=== PATIENT | female | born 1940 | race Caucasian/White ===

== ENCOUNTER 2022-02-24 23:38 | Inpatient (IN) | payer BC, OTHER ==
[~2022-02-24] VITALS: Ht 160 cm; Wt 65.8 kg
--- NOTE | 2022-02-24 23:50 | NUR ---
Patient came in BIB RA [facility] from [facility] for abnormal labs hgb 6.8. Pt had pelvic fracture x 6 months ago.
[2022-02-25] VITALS (11 sets, daily range): BP systolic 138–161; BP diastolic 42–58
--- NOTE | 2022-02-25 00:15 | NUR ---
Seen and examined by Dr. Pinon for MSE.
[2022-02-25] MEDS ORDERED: ACETAMINOPHEN 325 MG TABLET PO ONE (00:30)
[2022-02-25] MEDS ORDERED: MORPHINE SULFATE 2 MG/1 ML DISP.SYRIN IV ONE (00:30)
[2022-02-25] MEDS ORDERED: ACETAMINOPHEN 325 MG TABLET ONE (00:47)
[2022-02-25] MEDS ORDERED: MORPHINE SULFATE 2 MG/1 ML DISP.SYRIN ONE (00:48)
[2022-02-25 01:16] LABS: HEMATOCRIT 23.4 % (31.2-41.9); MEAN CORPUSCULAR VOLUME 85.2 fL (75.5-95.3); PLATELET COUNT (AUTO) 216 K/uL (179-408)
[2022-02-25 01:45] LABS: ALANINE AMINOTRANSFERASE 22 U/L (14-59); ALKALINE PHOSPHATASE 195 U/L (50-136); ASPARTATE AMINOTRANSFERASE 25 U/L (15-37); BILIRUBIN,DIRECT 0.2 mg/dL (0.0-0.2); BILIRUBIN,TOTAL 0.6 mg/dL (0.2-1.0); CARBON DIOXIDE 28 mmol/L (21-32); CHLORIDE 92 mmol/L (98-107); CREATININE 3.5 mg/dL (0.6-1.3); GLUCOSE 113 mg/dL (74-106); POTASSIUM 4.2 mmol/L (3.5-5.1); TOTAL PROTEIN, SERUM 6.6 g/dL (6.4-8.2); UREA NITROGEN, BLOOD 74 mg/dL (7-18)
--- NOTE | 2022-02-25 03:51 | NUR ---
Called [facility] to page Linsey Torres NP.
--- NOTE | 2022-02-25 04:00 | NUR ---
Called [facility]/Tele for available room.
--- NOTE | 2022-02-25 04:30 | NUR ---
Spoke with LUCY Hernandez regarding patient's room. Patient will be placed to Room 318.
[2022-02-25] MEDS ORDERED: VITA1TAB20 PO (04:33)
[2022-02-25] MEDS ORDERED: ATOR10TA PO (04:33)
[2022-02-25] MEDS ORDERED: ACET-73 PO (04:33)
[2022-02-25] MEDS ORDERED: AMIO200T5 PO (04:33)
[2022-02-25] MEDS ORDERED: CARV20CP PO (04:33)
[2022-02-25] MEDS ORDERED: LIDO30AD10 TP (04:33)
[2022-02-25] MEDS ORDERED: UBID100C45 PO (04:33)
[2022-02-25] MEDS ORDERED: AMIN30LI2 PO (04:33)
[2022-02-25] MEDS ORDERED: DOXA2TAB2 PO (04:33)
[2022-02-25] MEDS ORDERED: ALLO100T PO (04:33)
[2022-02-25] MEDS ORDERED: INSU100C (04:33)
[2022-02-25] MEDS ORDERED: SITA50TA PO (04:33)
[2022-02-25] MEDS ORDERED: NA P133E RC (04:33)
[2022-02-25] MEDS ORDERED: MAGN400O6 PO (04:33)
[2022-02-25] MEDS ORDERED: APIX2.5T PO (04:33)
[2022-02-25] MEDS ORDERED: CAND32TA20 PO (04:33)
[2022-02-25] MEDS ORDERED: ACET-2154 PO (04:33)
[2022-02-25] MEDS ORDERED: LEVO175T7 PO (04:33)
[2022-02-25] MEDS ORDERED: FERR325T28 PO (04:33)
[2022-02-25] MEDS ORDERED: TORS20TA3 PO (04:33)
[2022-02-25] MEDS ORDERED: CHOL2000 PO (04:33)
[2022-02-25] MEDS ORDERED: BISA10SU61 RC (04:33)
[2022-02-25] MEDS ORDERED: GLIP5TAB13 PO (04:33)
[2022-02-25] MEDS ORDERED: REMEDY ESSENTIAL ZINC PASTE 113 GM TP PRN (04:45)
[2022-02-25] MEDS ORDERED: ACETAMINOPHEN 325 MG TABLET-SA PATIENTS-PAIN ONLY PO PRN (04:45)
[2022-02-25] MEDS ORDERED: DEXTROSE 50% 50 ML DISP.SYRIN IV PRN (04:45)
[2022-02-25] MEDS ORDERED: INSULIN REGULAR, HUMAN 300 UNITS/3 ML VIAL SQ PRN (04:45)
[2022-02-25] MEDS ORDERED: ONDANSETRON 4 MG/2 ML VIAL IV PRN (04:45)
[2022-02-25] MEDS ORDERED: ZOLPIDEM 5 MG TABLET PO PRN (04:45)
[2022-02-25] MEDS ORDERED: IV NS 1000 ML 1,000 ML IV PRN (04:45)
[2022-02-25] MEDS ORDERED: MAGNESIUM HYDROXIDE 30 ML LIQUID UDC PO PRN ×2 (04:45)
[2022-02-25] MEDS ORDERED: FLEET ENEMA 133 ML BOTTLE RC PRN (04:45)
[2022-02-25] MEDS ORDERED: INSULIN REGULAR, HUMAN 300 UNIT/3 ML VIAL SQ PRN (04:45)
--- NOTE | 2022-02-25 04:45 | NUR ---
Still for OB stool, will endorsed to LUCY Hernandez.
--- NOTE | 2022-02-25 05:10 | NUR ---
Report given to LUCY Hernandez.
--- NOTE | 2022-02-25 05:15 | NUR ---
Transported to room 318 via gurney, without any incident, accompanied by 1 staff member. Belongings list checked.
[2022-02-25] MEDS ORDERED: ACETAMINOPHEN ES 500 MG TABLET PO PRN (05:45)
[2022-02-25] MEDS: LEVOTHYROXINE SODIUM 175 MCG TABLET PO SCH (06:04)
[2022-02-25] MEDS: BLOOD SUGAR DIAGNOSTIC 1 EACH STRIP VI SCH ×4 (06:34→21:22)
--- NOTE | 2022-02-25 06:41 | NUR ---
Admitted patient to tele unit from [facility] via [facility] accompanied by [facility] nurse.Dx of anemia under the care of jose Stiles .Patient AALOx4.Denies SOB. On RA. NSr on Tele.IV patent and intact.Started IVF running at 75 ml /hr.Incontinent. Pericare provided and wound care. Safety measures in place. Notified Linsey patient's H/H no blood transfusion needed at this time. Call light within reach. Will endorse to incoming shift.
[2022-02-25] MEDS ORDERED: CANDESARTAN CILEXETIL 16 MG PO SCH (09:00)
[2022-02-25] MEDS ORDERED: Medication Not On Formulary EA (Ubidecarenone (Co Q-10) 100 MG) PO SCH (09:00)
[2022-02-25] MEDS ORDERED: BISACODYL 10 MG SUPP.RECT RC PRN (09:00)
[2022-02-25] MEDS ORDERED: Medication Not On Formulary EA (Sitagliptin Phosphate (Januvia) 25 MG) PO SCH (09:00)
[2022-02-25] MEDS ORDERED: LIDOCAINE 5% PATCH TD SCH (09:00)
[2022-02-25] MEDS ORDERED: TORSEMIDE PO SCH (09:00)
[2022-02-25] MEDS ORDERED: Medication Not On Formulary EA (Carvedilol Phosphate (Coreg Cr) 1 CAP) PO SCH (09:00)
[2022-02-25] MEDS ORDERED: hydrALAZINE HCL 25 MG TABLET PO PRN (09:00)
--- NOTE | 2022-02-25 09:00 | NUR ---
HBG [address] Dmitriy MD with new orders to transfuse blood. Patient is alert and oriented x4, able to make needs known. Noted with left eye drooping. On RA, no SOB or congestions. Telemetry is NSR. noted with left hip pain from FX. patient has open skin area to bilateral buttocks and sacral redness. Patient encouraged to be on her sides but refuses. All needs attended by staff.
[2022-02-25 09:17] LABS: MEAN CORPUSCULAR HEMOGLOBIN 28.1 uug (24.7-32.8); MEAN CORPUSCULAR VOLUME 85.5 fL (75.5-95.3); PLATELET COUNT (AUTO) 182 K/uL (179-408)
[2022-02-25 09:21] LABS: CARBON DIOXIDE 27 mmol/L (21-32); CHLORIDE 93 mmol/L (98-107); CREATININE 3.5 mg/dL (0.6-1.3); GLUCOSE 137 mg/dL (74-106); POTASSIUM 4.3 mmol/L (3.5-5.1); UREA NITROGEN, BLOOD 72 mg/dL (7-18)
[2022-02-25] MEDS: CARVEDILOL 6.25 MG TABLET PO SCH ×2 (09:24→17:35)
[2022-02-25] MEDS: AMIODARONE HCL 200 MG TABLET PO SCH (09:24)
[2022-02-25] MEDS: LINAGLIPTIN 5 MG TABLET PO SCH (09:24)
[2022-02-25] MEDS: glipiZIDE 5 MG TABLET PO SCH ×2 (09:24→17:35)
[2022-02-25] MEDS: LOSARTAN POTASSIUM 50 MG TABLET PO SCH (09:24)
[2022-02-25] MEDS: CHOLECALCIFEROL 1,000 UNIT TABLET PO SCH (09:24)
[2022-02-25] MEDS: FERROUS SULFATE 325 MG TABEC PO SCH (09:25)
[2022-02-25] MEDS: PANTOPRAZOLE SODIUM 40 MG VIAL IV SCH (09:25)
[2022-02-25] MEDS: ALLOPURINOL 100 MG TABLET PO SCH (09:25)
[2022-02-25] MEDS: VITAMIN B COMPLEX 1 TABLET PO SCH (09:25)
[2022-02-25] MEDS: PROTEIN SUPPLEMENT (PROSTAT) 30 ML LIQUID PO SCH ×3 (09:26→17:37)
[2022-02-25 09:34] LABS: THYROID STIMULATING HORMONE 1.004 mIU/mL (0.358-3.740)
[2022-02-25 09:38] LABS: ALANINE AMINOTRANSFERASE 17 U/L (14-59); ALKALINE PHOSPHATASE 171 U/L (50-136); ASPARTATE AMINOTRANSFERASE 19 U/L (15-37); BILIRUBIN,TOTAL 0.6 mg/dL (0.2-1.0); HEMATOCRIT 20.6 % (31.2-41.9); MAGNESIUM 1.9 mg/dL (1.8-2.4); PHOSPHOROUS 5.3 mg/dL (2.5-4.9); TOTAL PROTEIN, SERUM 5.9 g/dL (6.4-8.2)
[2022-02-25 09:40] LABS: IRON, SERUM 12 ug/dL (50-175)
[2022-02-25 09:57] LABS: CHOLESTEROL 92 mg/dL (<200); HDL CHOLESTEROL 42 mg/dL (40-60); TRIGLYCERIDES 48 MG/DL (30-150)
[2022-02-25] MEDS: LIDOCAINE 5% PATCH TD SCH (14:22)
--- NOTE | 2022-02-25 15:40 | NUR ---
Patient started on blood transfusion, no adverse reactions noted at his time. Denies any discomfort, no sob or cough.
[2022-02-25] MEDS: DOXAZOSIN 2 MG TABLET PO SCH (17:35)
--- NOTE | 2022-02-25 18:25 | NUR ---
Patient completed blood transfusion, no0 adverse reactions noted. Patient is stable and in no acute distress.
[2022-02-25 20:34] LABS: BAND % (MANUAL) 2 % (0-10); LYMPHOCYTES % (MANUAL) 8 % (20-40); MONOCYTES % (MANUAL) 8 % (2-10); NEUTROPHILS % (MANUAL) 81 % (42-75)
[2022-02-25] MEDS ORDERED: ATORVASTATIN 10 MG TABLET PO SCH (21:00)
--- NOTE | 2022-02-25 21:45 | NUR ---
Patient in bed alert and able to make needs known.Denies pain or discomfort at this time.On Ra.No s/s of distress noted.NSR on tele.BS 78. Snack provided.Iv patent and intact. Safety measures in place. Call light with in reach.Will continue to monitor.
[2022-02-26 00:12] VITALS: BP 151/47
[2022-02-26 05:23] LABS: *BILIRUBIN,URIN NEGATIVE (NEGATIVE); *BLOOD, URINE NEGATIVE (NEGATIVE); *CLARITY,URINE CLOUDY (CLEAR); *COLOR,URINE YELLOW (YELLOW); *KETONES,URINE NEGATIVE (NEGATIVE); *UROBILINOGEN,URINE 0.2 E.U./dl (NORMAL); LEUKOCYTE ESTERASE ,URINE 1+ (NEGATIVE); NITRITE, URINE NEGATIVE (NEGATIVE); PH,URINE 6.5 (5.0-8.0); UGLUCOSE NEGATIVE (NEGATIVE)
[2022-02-26 05:32] LABS: RBC,URINE 0-3 /HPF (0-3)
[2022-02-26 05:33] LABS: BACTERIA,URINE MODERATE /HPF (NONE SEEN); SQUAMOUS EPITHELIAL CELL,UR FEW /HPF (NONE SEEN)
[2022-02-26 05:42] VITALS: BP 137/50
[2022-02-26] MEDS: LEVOTHYROXINE SODIUM 175 MCG TABLET PO SCH (06:04)
--- NOTE | 2022-02-26 06:27 | NUR ---
Patient alert and verbally responsive in no acute distress noted. Incontinent.Pericare rendered. UA collected and sent to lab. Wound care provided.Repositioned patient gently. BS 57 this morning.Snacks provided. Kept HOB elevated. Aspiration precaution observed at all times.Will endorsed to incoming shift..
[2022-02-26] MEDS: BLOOD SUGAR DIAGNOSTIC 1 EACH STRIP VI SCH (06:37)
--- NOTE | 2022-02-26 06:43 | NUR ---
Rechecked Blood glucose 98.
[2022-02-26 07:22] LABS: HEMATOCRIT 23.9 % (31.2-41.9); MEAN CORPUSCULAR HEMOGLOBIN 27.7 uug (24.7-32.8); MEAN CORPUSCULAR VOLUME 83.6 fL (75.5-95.3); PLATELET COUNT (AUTO) 187 K/uL (179-408)
[2022-02-26 07:40] LABS: CARBON DIOXIDE 28 mmol/L (21-32); CHLORIDE 94 mmol/L (98-107); CREATININE 3.6 mg/dL (0.6-1.3); GLUCOSE 86 mg/dL (74-106); PHOSPHOROUS 5.1 mg/dL (2.5-4.9); POTASSIUM 4.3 mmol/L (3.5-5.1); UREA NITROGEN, BLOOD 75 mg/dL (7-18)
--- NOTE | 2022-02-26 08:54 | NUR ---
Dr. Izaguirre made aware of pattern of low blood sugar before meals and at night time. with orders to DC glipizide.
[2022-02-26] MEDS: PROTEIN SUPPLEMENT (PROSTAT) 30 ML LIQUID PO SCH ×3 (09:00→17:00)
[2022-02-26] MEDS: LINAGLIPTIN 5 MG TABLET PO SCH ×2 (09:00→09:17)
[2022-02-26] MEDS: LIDOCAINE 5% PATCH TD SCH (09:13)
[2022-02-26] MEDS: VITAMIN B COMPLEX 1 TABLET PO SCH (09:15)
[2022-02-26] MEDS: PANTOPRAZOLE SODIUM 40 MG VIAL IV SCH (09:15)
[2022-02-26] MEDS: AMIODARONE HCL 200 MG TABLET PO SCH (09:16)
[2022-02-26] MEDS: CHOLECALCIFEROL 1,000 UNIT TABLET PO SCH (09:17)
[2022-02-26] MEDS: ALLOPURINOL 100 MG TABLET PO SCH (09:17)
[2022-02-26] MEDS: FERROUS SULFATE 325 MG TABEC PO SCH (09:17)
[2022-02-26] MEDS: LOSARTAN POTASSIUM 50 MG TABLET PO SCH (09:21)
[2022-02-26] MEDS: CARVEDILOL 6.25 MG TABLET PO SCH ×2 (09:22→17:26)
[2022-02-26] MEDS: CEFTRIAXONE 1 G in IV DEXTROSE 5% 50 ML IV SCH (10:53)
[2022-02-26 11:44] VITALS: BP 138/43
[2022-02-26] MEDS: ACETAMINOPHEN 325 MG TABLET PO PRN (15:27)
--- NOTE | 2022-02-26 16:09 | NUR ---
Patient is AAO x4, in no acute distress. C/O severe pain to left hip during ADL's, mild pain when at rest. Tylenol 650mg provided. First step mattress provided and in place to assist in healing of pressure sore to bilateral buttocks and sacrum. Scant serosanguineous drainage noted. No SOB or c/o chest pain, on RA. all needs attended by staff.
[2022-02-26 17:09] VITALS: BP 119/59
[2022-02-26] MEDS: DOXAZOSIN 2 MG TABLET PO SCH (17:26)
[2022-02-26 20:00] VITALS: BP 155/60
[2022-02-27 05:00] VITALS: BP 145/72
[2022-02-27] MEDS: LEVOTHYROXINE SODIUM 175 MCG TABLET PO SCH (06:11)
[2022-02-27 06:23] LABS: HEMATOCRIT 24.2 % (31.2-41.9); MEAN CORPUSCULAR HEMOGLOBIN 27.7 uug (24.7-32.8); MEAN CORPUSCULAR VOLUME 84.7 fL (75.5-95.3); PLATELET COUNT (AUTO) 184 K/uL (179-408)
[2022-02-27 06:45] LABS: CARBON DIOXIDE 28 mmol/L (21-32); CHLORIDE 95 mmol/L (98-107); CREATININE 3.7 mg/dL (0.6-1.3); GLUCOSE 98 mg/dL (74-106); MAGNESIUM 2.1 mg/dL (1.8-2.4); PHOSPHOROUS 4.9 mg/dL (2.5-4.9); POTASSIUM 4.3 mmol/L (3.5-5.1)
[2022-02-27 06:50] LABS: UREA NITROGEN, BLOOD 85 mg/dL (7-18)
[2022-02-27 06:56] LABS: THYROID STIMULATING HORMONE 1.008 mIU/mL (0.358-3.740)
[2022-02-27] MEDS ORDERED: PANTOPRAZOLE SODIUM 40 MG TABLET.DR PO SCH (07:00)
[2022-02-27 07:33] LABS: URIC ACID 5.6 mg/dL (2.6-6.0)
[2022-02-27] MEDS: CARVEDILOL 6.25 MG TABLET PO SCH ×2 (09:24→17:34)
[2022-02-27] MEDS: AMIODARONE HCL 200 MG TABLET PO SCH (09:24)
[2022-02-27] MEDS: FERROUS SULFATE 325 MG TABEC PO SCH (09:24)
[2022-02-27] MEDS: LINAGLIPTIN 5 MG TABLET PO SCH (09:24)
[2022-02-27] MEDS: CHOLECALCIFEROL 1,000 UNIT TABLET PO SCH (09:25)
[2022-02-27] MEDS: ALLOPURINOL 100 MG TABLET PO SCH (09:25)
[2022-02-27] MEDS: LOSARTAN POTASSIUM 50 MG TABLET PO SCH (09:25)
[2022-02-27] MEDS: LIDOCAINE 5% PATCH TD SCH (09:28)
[2022-02-27] MEDS: CEFTRIAXONE 1 G in IV DEXTROSE 5% 50 ML IV SCH (09:29)
[2022-02-27] MEDS: VITAMIN B COMPLEX 1 TABLET PO SCH (09:36)
[2022-02-27] MEDS: PROTEIN SUPPLEMENT (PROSTAT) 30 ML LIQUID PO SCH ×3 (09:37→16:54)
--- NOTE | 2022-02-27 10:44 | NUR ---
Alert and oriented x4, denies sob or pain. Purewick attached. no hematuria or dysuria noted. Iv intact and patent. Needs attended. Kept comfortable.
[2022-02-27 11:34] VITALS: BP 161/49
--- NOTE | 2022-02-27 13:57 | NUR ---
Seen and examined by Dr. Verduzco from surgery, no new order received at this time.
--- NOTE | 2022-02-27 15:37 | NUR ---
Patient said she spoke with Dr. Wick yesterday that she wants to resume accuchecks. Spoke to Dr. Wick, ok to resume accuchecks, sliding scale and Atorvastatin noted. Patient made aware.
[2022-02-27] MEDS ORDERED: INSULIN REGULAR, HUMAN 300 UNIT/3 ML VIAL SQ PRN (15:45)
[2022-02-27] MEDS ORDERED: INSULIN REGULAR, HUMAN 300 UNITS/3 ML VIAL SQ PRN (15:45)
[2022-02-27] MEDS ORDERED: DEXTROSE 50% 50 ML DISP.SYRIN IV PRN (15:45)
[2022-02-27 16:00] VITALS: BP 159/50
[2022-02-27] MEDS ORDERED: BLOOD SUGAR DIAGNOSTIC 1 EACH STRIP VI SCH (16:30)
[2022-02-27] MEDS ORDERED: AMLODIPINE 5 MG TABLET PO SCH (16:45)
[2022-02-27] MEDS: ACETAMINOPHEN 325 MG TABLET PO PRN (17:03)
[2022-02-27] MEDS ORDERED: LEVO250S3 PO (17:17)
[2022-02-27] MEDS ORDERED: EPOE1VIA12 IJ (17:17)
[2022-02-27] MEDS ORDERED: AMLO-212 PO (17:21)
[2022-02-27] MEDS: DOXAZOSIN 2 MG TABLET PO SCH (17:33)
--- NOTE | 2022-02-27 18:48 | NUR ---
Patient for discharge agreeable back to [facility]. No acute distress. Gave report to Karina AYALA at [place].
--- NOTE | 2022-02-27 19:05 | NUR ---
Patient wants covid test d/t family encounter who tested positive. Dr. Wick made aware with order.
[2022-02-27] MEDS ORDERED: hydrALAZINE HCL 50 MG TABLET PO STA (19:51)
[2022-02-27 19:56] VITALS: BP 186/55
--- NOTE | 2022-02-27 20:18 | NUR ---
ONE TIME APRESOLINE 50 MG PRN ORDERED AT 194h BY DR. ACOSTA. FOR BP 186/55.
--- NOTE | 2022-02-27 20:19 | NUR ---
BP NOW IS 156/63
--- NOTE | 2022-02-27 20:22 | NUR ---
PT WHEELED OUT VIA [employer]. DISCHARGE PAPERS GIVEN TO August ECHEVARRIA OF [facility]. PT IN NO ACUTE DISTRESS. ID BAND TAKEN OFF AND IV ACCESS TAKEN OFF. BELONGINGS OF THE PT GIVEN. PT VITAL SIGNS STABLE. PT STABLE.
[2022-02-27] MEDS ORDERED: ATORVASTATIN 10 MG TABLET PO SCH (21:00)
== END 2022-02-27 20:25 | DRG 698 ==
LOC: ER 23:38 → TELE3 02-25 04:34 → MEDSURG3 02-26 22:40
PROVIDERS: ADMIT Nurse Practitioner Acute Care; ATTEND Internal Medicine
PROC: 30233N1 Transfusion of Nonautologous Red Blood Cells into Peripheral Vein, Percutaneous Approach (ICD-10-PCS; principal; 2022-02-25)
DX: E11.22 Type 2 diabetes mellitus with diabetic chronic kidney disease (principal); E43 Unspecified severe protein-calorie malnutrition; I50.31 Acute diastolic (congestive) heart failure; I13.2 Hypertensive heart and chronic kidney disease with heart failure and with stage 5 chronic kidney disease, or end stage renal disease; E87.1 Hypo-osmolality and hyponatremia; I48.20 Chronic atrial fibrillation, unspecified; N39.0 Urinary tract infection, site not specified; N18.5 Chronic kidney disease, stage 5; D63.1 Anemia in chronic kidney disease; N17.9 Acute kidney failure, unspecified; M19.90 Unspecified osteoarthritis, unspecified site; E03.9 Hypothyroidism, unspecified; Z79.890 Hormone replacement therapy; I25.2 Old myocardial infarction; Z95.5 Presence of coronary angioplasty implant and graft; L89.159 Pressure ulcer of sacral region, unspecified stage; I25.10 Atherosclerotic heart disease of native coronary artery without angina pectoris; E78.5 Hyperlipidemia, unspecified; E61.1 Iron deficiency; Z79.84 Long term (current) use of oral hypoglycemic drugs; D63.8 Anemia in other chronic diseases classified elsewhere; B96.89 Other specified bacterial agents as the cause of diseases classified elsewhere; K21.9 Gastro-esophageal reflux disease without esophagitis; R29.810 Facial weakness; Z79.01 Long term (current) use of anticoagulants; Z79.899 Other long term (current) drug therapy; Z79.4 Long term (current) use of insulin; F32.A Depression, unspecified; K59.00 Constipation, unspecified; K64.9 Unspecified hemorrhoids; I35.8 Other nonrheumatic aortic valve disorders; Z20.822 Contact with and (suspected) exposure to COVID-19; M81.0 Age-related osteoporosis without current pathological fracture; Z86.73 Personal history of transient ischemic attack (TIA), and cerebral infarction without residual deficits; Z90.710 Acquired absence of both cervix and uterus
CPT/HCPCS: 36415; 70030-TC; 71045; 83550; 83735; 84100; 84443; 84484; 84550; 85025; 85730; 86850; 86900; 86901; 86920; 87077; 87086; 93005; 93307; A4663; A6209; A6213; C9113; G0378; J0696; J1815; J2270; J7040; J8499; P9016